=== PATIENT | female | born 1985 | race Caucasian/White ===

== ENCOUNTER 2016-05-14 20:53 | Emergency (ER) | payer SELFPAY ==
[2016-05-14 21:42] VITALS: BP 105/69; TEMP 99.3
--- NOTE | 2016-05-14 22:10 | C.PDOC ---
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: language barrier Injury Occurred (Timing): Just Before Arrival Description Of Injury (Context): Fell down stairs Location Of Injury: Right: Foot, Left: Shoulder Severity: Moderate Additional History Per: Prior Records - Fall Fall:Prior To Injury: Slipped Past Medical History Reviewed: Historical Data, Nursing Documentation, Vital Signs Vital Signs: Last Vital Signs Temp 99.3 F 05/14/16 21:32 Pulse 84 05/14/16 21:32 Resp 17 05/14/16 21:32 BP 105/69 05/14/16 21:32 Pulse Ox 97 05/14/16 21:32 - Medical History PMH: No Chronic Diseases Family History: States: Unknown Family Hx - Social History Hx Alcohol Use: No Hx Substance Use: No - Immunization History Hx Tetanus Toxoid Vaccination: No Hx Influenza Vaccination: No Hx Pneumococcal Vaccination: No Review Of Systems Except As Marked, All Systems Reviewed And Found Negative. Constitutional: Negative for: Fever, Weakness Cardiovascular: Negative for: Chest Pain Respiratory: Negative for: Shortness of Breath Gastrointestinal: Negative for: Nausea, Vomiting, Abdominal Pain Musculoskeletal: Positive for: Shoulder Pain (left), Foot Pain (right). Negative for: Neck Pain, Back Pain Neurological: Negative for: Weakness, Numbness, Seizures, Altered Mental Status , Dizziness Physical Exam - Physical Exam Appears: Non-toxic, No Acute Distress Skin: Normal Color, Warm, Dry, No Rash Head: Atraumatic, Normacephalic Eye(s): bilateral: Normal Inspection, PERRL, EOMI Neck: Normal ROM, No Midline Cervical Tenderness, No Step Off Deformity, Supple Chest: Symmetrical, No Deformity, No Tenderness Cardiovascular: Rhythm Regular Respiratory: Normal Breath Sounds, No Accessory Muscle Use Gastrointestinal/Abdominal: Soft, No Tenderness Back: No CVA Tenderness, No Vertebral Tenderness Extremity: Normal ROM, Tenderness (left shoulder and right foot), Capillary Refill (wnl), No Deformity, No Swelling Pulses: Left Radial: Normal, Right Dorsalis Pedis: Normal Neurological/Psych: Oriented x3, Normal Speech, Normal Cognition, Normal Motor, Normal Sensation ED Course And Treatment O2 Sat by Pulse Oximetry: 97 Pulse Ox Interpretation: Normal - Radiology Nexus Criteria: Negative - Other Rad Left shoulder x-rays X-Ray: Interpreted by Me, Viewed By Me Interpretation: No acute fx or dislocation Right foot x-rays X-Ray: Interpreted by Me, Viewed By Me Interpretation: No acute fx or dislocation. Reassessment Condition: Improved Disposition Counseled Patient/Family Regarding: Studies Performed, Diagnosis, Need For Followup, Rx Given - Disposition Referrals: at [facility] [Outside] Jeannie Mtz MD [Staff Provider] - Disposition: HOME/ ROUTINE Disposition Time: 22:11 Condition: IMPROVED Additional Instructions: Use sling as instructed. Ice. Elevate. CAMRYN wrap. Rest. Follow up with an orthopedic doctor. Return to the ER if you develop worsening of symptoms or if you have any other concerns. Prescriptions: Naproxen [Naprosyn] 1 tab PO BID PRN #20 tab PRN Reason: Pain Instructions: Shoulder Sprain (ED), Foot Sprain (ED) Print Language: SLOVENIAN - Clinical Impression Clinical Impression: Contusion of left shoulder, Contusion of right foot, Fall down stairs
[2016-05-14 23:26] VITALS: PULSE 80; RESP 20; O2SAT 100
--- NOTE | 2016-05-15 10:54 | RAD ---
PROCEDURE: Right Foot Radiographs. HISTORY: Pain s/p fall COMPARISON: None. FINDINGS: BONES: Normal. No fracture. JOINTS: Normal. SOFT TISSUES: Normal. OTHER FINDINGS: None. IMPRESSION: No acute findings related to/accounting for the clinical presentation.
--- NOTE | 2016-05-15 10:54 | RAD ---
PROCEDURE: Radiographs of the Left Shoulder HISTORY: Pain s/p fall COMPARISON: No prior. FINDINGS: BONES: Normal. No fracture. JOINTS: Normal. Glenohumeral and acromioclavicular joints preserved. No osteoarthritis. SOFT TISSUES: Normal. OTHER FINDINGS: None. IMPRESSION: No acute findings related to/accounting for the clinical presentation.
== END 2016-05-14 23:25 | disposition home or self-care (01) ==
LOC: C.ER 20:53
DX: S40.012A Contusion of left shoulder, initial encounter (principal); S90.31XA Contusion of right foot, initial encounter; W10.9XXA Fall (on) (from) unspecified stairs and steps, initial encounter; Y92.9 Unspecified place or not applicable
CPT/HCPCS: 73030; 73630; 96372; 99284; J1885

== ENCOUNTER 2016-12-19 07:09 | Emergency (ER) | payer SELFPAY ==
[2016-12-19 07:16] VITALS: BP 110/74; PULSE 75; RESP 18; TEMP 98.2; O2SAT 99; BMI 31.8
[2016-12-19] MEDS ORDERED: Ofloxacin 0.3% Otic Soln AD STA (07:29)
--- NOTE | 2016-12-19 07:32 | C.PDOC ---
History Of Present Illness 31 year old female with no significant PMHx presents to the ED with complaints of right ear pain for four days. Patient denies headache, fever, or other associated complaints at this time. Time Seen by Provider: 12/19/16 07:17 Chief Complaint (Nursing): ENT Problem History Per: Patient History/Exam Limitations: None Onset/Duration Of Symptoms: Days (4 days ) Current Symptoms Are (Timing): Still Present Quality (Ear): Other ("pain" ) Anticoagulant/Antiplatlet Use?: No Recent Aspirin Use: No Past Medical History Reviewed: Historical Data, Nursing Documentation, Vital Signs Vital Signs: Last Vital Signs Temp 98.2 F 12/19/16 07:16 Pulse 75 12/19/16 07:16 Resp 18 12/19/16 07:16 BP 110/74 12/19/16 07:16 Pulse Ox 99 12/19/16 07:46 - Medical History PMH: No Chronic Diseases Surgical History: No Surg Hx Family History: States: Unknown Family Hx - Social History Hx Alcohol Use: No Hx Substance Use: No - Immunization History Hx Tetanus Toxoid Vaccination: No Hx Influenza Vaccination: No Hx Pneumococcal Vaccination: No Review Of Systems Constitutional: Negative for: Fever, Chills ENT: Positive for: Ear Pain. Negative for: Ear Discharge Cardiovascular: Negative for: Chest Pain, Palpitations Respiratory: Negative for: Cough, Shortness of Breath Gastrointestinal: Negative for: Nausea, Vomiting, Abdominal Pain, Diarrhea Skin: Negative for: Rash Neurological: Negative for: Headache Physical Exam - Physical Exam Appears: Non-toxic, No Acute Distress Skin: Warm, Dry, No Rash Head: Atraumatic, Normacephalic, No Tenderness Eye(s): bilateral: Normal Inspection, PERRL, EOMI Ear(s): Left: Normal, Right: Other (right ear edematous ear canal with exudates and serous discharge.) Nose: Normal, No Discharge Oral Mucosa: Moist Throat: Normal, No Erythema, No Exudate Neck: Normal ROM, Supple Chest: Symmetrical, No Deformity Cardiovascular: Rhythm Regular, No Murmur Respiratory: No Rales, No Rhonchi, No Wheezing, Other (clear to auscultation bilaterally ) Extremity: Bilateral: Atraumatic, Normal Color And Temperature, Normal ROM Neurological/Psych: Oriented x3, Normal Speech ED Course And Treatment O2 Sat by Pulse Oximetry: 99 (RA) Pulse Ox Interpretation: Normal Progress Note: Patient was given prescription for Floxin 0.3% Otic solution. Medical Decision Making Medical Decision Making: Patient with right ear pain for 4 days. Exam shows edematous ear canal with exudates and serous discharge. Will treat for OE with ofloxacin. RN instilled 5 drops into affected ear. Patient given instruction on care and follow up with ENT or clinic. Disposition Counseled Patient/Family Regarding: Diagnosis, Need For Followup, Rx Given - Disposition Referrals: [facility] at [facility] [Outside] Damian Christianson MD [Staff Provider] - Disposition: HOME/ ROUTINE Disposition Time: 07:31 Condition: STABLE Additional Instructions: aplicar 5 gotas en el odo afectado dos veces al da shari angelica semana [place] tylenol o motrin para cualquier dolor o fiebre seguimiento en la clnica para ms cuidado Prescriptions: Ofloxacin Otic 0.3% [Floxin 0.3% Otic Soln] 5 drop AD BID #1 bottle Instructions: Otitis Externa (ED) Forms: [employer] (Tunisian) Print Language: GREENLANDIC - POA Present On Arrival: None - Clinical Impression Clinical Impression: Otitis externa - 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 - Scribe Statement The provider has reviewed the documentation as recorded by the Scribe Delisa Rahman All medical record entries made by the Scribe were at my direction and personally dictated by me. I have reviewed the chart and agree that the record accurately reflects my personal performance of the history, physical exam, medical decision making, and the department course for this patient. I have also personally directed, reviewed, and agree with the discharge instructions and disposition.
== END 2016-12-19 07:52 | disposition home or self-care (01) ==
LOC: EDBD 07:09 → C.ER 07:09
DX: H60.91 Unspecified otitis externa, right ear (principal)

== ENCOUNTER 2017-11-07 20:50 | Emergency (ER) | payer SELFPAY ==
[2017-11-07 20:50] VITALS: BMI 31.8
[2017-11-07 21:28] VITALS: BP 112/74; PULSE 68; RESP 20; TEMP 98.7; O2SAT 96
--- NOTE | 2017-11-07 21:51 | C.PDOC ---
History Of Present Illness 32 y/o female presents to ED with c/o left ear pain for 3 days associated with lump near ear. Patient admits to subjective fever and mild headache, denies vision changes, trauma, decreased hearing or any other complaints at this time. pt has some clearish discharge form right ear, denies any recent swimming. Time Seen by Provider: 11/07/17 21:29 Chief Complaint (Nursing): ENT Problem History Per: Patient History/Exam Limitations: None Onset/Duration Of Symptoms: Days Current Symptoms Are (Timing): Still Present Past Medical History Reviewed: Historical Data, Nursing Documentation, Vital Signs Vital Signs: Last Vital Signs Temp 98.7 F 11/07/17 21:25 Pulse 68 11/07/17 21:25 Resp 20 11/07/17 21:25 BP 112/74 11/07/17 21:25 Pulse Ox 96 11/07/17 21:25 - Medical History PMH: No Chronic Diseases Surgical History: No Surg Hx Family History: States: No Known Family Hx - Social History Hx Alcohol Use: No Hx Substance Use: No - Immunization History Hx Tetanus Toxoid Vaccination: No Hx Influenza Vaccination: No Hx Pneumococcal Vaccination: No Review Of Systems Constitutional: Negative for: Fever, Chills ENT: Positive for: Ear Pain, Ear Discharge Cardiovascular: Negative for: Chest Pain Respiratory: Negative for: Cough, Shortness of Breath Gastrointestinal: Negative for: Nausea, Vomiting Skin: Negative for: Rash Neurological: Positive for: Headache Physical Exam - Physical Exam Appears: Non-toxic, No Acute Distress Skin: Warm, Dry, No Rash Head: Atraumatic, Normacephalic, Other (no mastoid tenderness) Eye(s): bilateral: Normal Inspection Ear(s): Right: Other (tender on tragus, moist whitish exudates in canal, TM not visible. Left postauricular tender enlarged node, no masoid tenderness. right canal with mosit devris, tm not seen, non tender. ) Nose: Normal Oral Mucosa: Moist Tongue: Normal Appearing Lips: Normal Appearing Teeth: Normal Dentition Throat: No Erythema, No Exudate Lymphatic: Adenopathy (left postauricular) Neurological/Psych: Oriented x3, Normal Speech, Normal Cognition ED Course And Treatment O2 Sat by Pulse Oximetry: 96 (ra) Pulse Ox Interpretation: Normal Medical Decision Making Medical Decision Making: pt with moist white exudate in left cexternal canal, tm not seen. will tx with cortisporin otic suspension and amox with close clinic f/u with ent referral. Disposition Counseled Patient/Family Regarding: Diagnosis, Need For Followup, Rx Given - Disposition Referrals: [facility] at [facility] [Outside] Damian Christianson MD [Staff Provider] - Disposition: HOME/ ROUTINE Disposition Time: 22:36 Condition: GOOD Additional Instructions: [place] antibiticos por va oral hasta completar. Use 4 gotas cada 6 horas en la oreja izquierda. Seguimiento en clnica mdica sin fallos en 2 = -3 sims. Recomendar la derivacin al mdico de la nariz y la garganta del odo. Tylenol para el dolor. Regrese a la shannon de emergencias para los sntomas de la enfermedad. Take antibiotics by mouth until complete. Use 4 drops every 6 hours in left ear. Follow up in medicaL clinic without fail in 2=-3 days. recommend referral to ear nose throat doctor. Tylenol for pain. Return to ER for woere symptoms. Prescriptions: Acetaminophen [Tylenol 325mg tab] 650 mg PO Q6 #30 tab Amoxicillin [Amoxil 500 mg Cap] 500 mg PO TID #30 cap Instructions: Outer Ear Infection (DC) Forms: Gen Discharge Inst Norwegian, [employer] (Norwegian) Print Language: TURKISH - Clinical Impression Clinical Impression: Otitis externa of left ear - PA / LEAD ATHLETE / Resident Statement MD/DO has reviewed & agrees with the documentation as recorded. - Scribe Statement The provider has reviewed the documentation as recorded by the Arpan Caraballo All medical record entries made by the Arpan were at my direction and personally dictated by me. I have reviewed the chart and agree that the record accurately reflects my personal performance of the history, physical exam, medical decision making, and the department course for this patient. I have also personally directed, reviewed, and agree with the discharge instructions and disposition.
[2017-11-07] MEDS ORDERED: Neomycin/Polymyxin/Hydrocort Otic Soln BOTTLE AS STA (21:58)
== END 2017-11-07 23:00 | disposition home or self-care (01) ==
LOC: C.ER 20:50
DX: H60.92 Unspecified otitis externa, left ear (principal)

== ENCOUNTER 2018-05-12 15:43 | Emergency (ER) | payer SELFPAY ==
[2018-05-12 15:44] VITALS: BMI 31.8
[2018-05-12 15:50] VITALS: RESP 20; O2SAT 98
--- NOTE | 2018-05-12 16:44 | C.PDOC ---
History Of Present Illness 32 y/o female, with no PMHx, presents to ED complaining of right ear pain for the past 3 days, associated with headache and nasal congestion. Patient states she had a fever 2 days ago but none now. She denies any vomiting, diarrhea, chest pain, abdominal pain, or dizziness. Time Seen by Provider: 05/12/18 15:51 Chief Complaint (Nursing): ENT Problem History Per: Patient History/Exam Limitations: None Onset/Duration Of Symptoms: Days Current Symptoms Are (Timing): Still Present Past Medical History Reviewed: Historical Data, Nursing Documentation, Vital Signs Vital Signs: Last Vital Signs Temp 98.3 F 05/12/18 15:46 Pulse 62 05/12/18 15:46 Resp 20 05/12/18 15:46 BP 108/71 05/12/18 15:46 Pulse Ox 98 05/12/18 15:46 Family History: States: No Known Family Hx - Social History Hx Alcohol Use: No Hx Substance Use: No - Immunization History Hx Tetanus Toxoid Vaccination: No Hx Influenza Vaccination: No Hx Pneumococcal Vaccination: No Review Of Systems Except As Marked, All Systems Reviewed And Found Negative. Constitutional: Negative for: Fever, Chills ENT: Positive for: Ear Pain (Right), Nose Congestion Cardiovascular: Negative for: Chest Pain Gastrointestinal: Negative for: Vomiting, Abdominal Pain, Diarrhea Neurological: Positive for: Headache. Negative for: Dizziness Physical Exam - Physical Exam Appears: Non-toxic, No Acute Distress Skin: Warm, Dry Head: Atraumatic, Normacephalic Eye(s): bilateral: Normal Inspection Ear(s): Left: Normal, Right: Other (white secretions in the canal, TM not visualized, tender) Oral Mucosa: Moist Neck: Supple Cardiovascular: Rhythm Regular, No Murmur Respiratory: Normal Breath Sounds, No Rales, No Rhonchi, No Wheezing Extremity: Bilateral: Atraumatic, Normal ROM Neurological/Psych: Oriented x3, Normal Speech ED Course And Treatment O2 Sat by Pulse Oximetry: 98 (RA) Pulse Ox Interpretation: Normal Medical Decision Making Medical Decision Making: Impression: URI/Otitis Externa/Possible Otitis Media Plan: --Amoxicillin 500 mg PO --Motrin 600 mg PO --Sudafed 30 mg PO Disposition - Disposition Referrals: [facility] at [facility] [place] [Outside] [facility] at [facility] [Outside] [facility] [place] [Outside] Disposition: HOME/ ROUTINE Disposition Time: 17:27 Condition: GOOD Additional Instructions: USe the medications as directed and follow up with your pcp or call for an appointment as soon as possible. Prescriptions: Amoxicillin 500 mg PO Q8 #21 tablet Ibuprofen [Motrin] 600 mg PO Q6 #20 tab Neomycin/Polymyxin/Hydrocortis [Cortisporin Otic Susp] 1 drop OT QID #1 bottle Pseudoephedrine HCl [Sudafed] 30 mg PO Q8 #10 tablet Forms: [email or web address] (Guamanian) - Clinical Impression Clinical Impression: Otitis media - Scribe Statement The provider has reviewed the documentation as recorded by the Arpan Quispe Provider Attestation: All medical record entries made by the Marybethibpratik were at my direction and personally dictated by me. I have reviewed the chart and agree that the record accurately reflects my personal performance of the history, physical exam, medical decision making, and the department course for this patient. I have also personally directed, reviewed, and agree with the discharge instructions and disposition.
[2018-05-12 17:26] VITALS: BP 93/60; PULSE 64; TEMP 97.7
== END 2018-05-12 17:27 | disposition home or self-care (01) ==
LOC: C.ER 15:43
DX: H66.90 Otitis media, unspecified, unspecified ear (principal)